=== PATIENT | male | born 1980 | race Caucasian/White ===

== ENCOUNTER 2021-08-01 14:35 | Inpatient (IN) | payer OTHER ==
[~2021-08-01] VITALS: Ht 177.8 cm; Wt 120.5 kg
[2021-08-01 15:23] LABS: BASOPHILS % (AUTO) 0.1 % (0.0-2.0); EOSINOPHILS % (AUTO) 0.3 % (1.0-6.0); HEMATOCRIT 40.6 % (41-53); HEMOGLOBIN 13.7 g/dL (13.5-17.5); LYMPHOCYTES # (AUTO) 1.1 K/uL (1.0-4.8); MEAN CORPUSCULAR HEMOGLOBIN 28.9 pg (26.0-34.0); MEAN CORPUSCULAR HGB CONC 33.7 G/dL (31.0-37.0); MEAN CORPUSCULAR VOLUME 86 fL (80-100); MONOCYTES % (AUTO) 8.3 % (2.0-9.0); NEUTROPHILS # (AUTO) 10.2 K/uL (1.8-7.7); NEUTROPHILS % (AUTO) 82.3 % (40.0-70.0); PLATELET COUNT (AUTO) 249 K/uL (150-450); RED BLOOD CELL COUNT(AUTO) 4.74 MIL/uL (4.50-5.90); RED CELL DISTRIBUTION WIDTH 14.4 % (11.5-14.5)
[2021-08-01 15:31] LABS: ANION GAP 13 mmol/L (8-16); CALCIUM, TOTAL 8.3 mg/dL (8.8-10.5); CARBON DIOXIDE 25 mmol/L (22-29); CHLORIDE 99 mmol/L (98-107); CREATININE 0.85 mg/dL (0.60-1.30); GLOMERULAR FILTR. RATE CALC > 60 mL/min (>60); GLUCOSE,RANDOM 112 mg/dL (70-110); POTASSIUM 3.7 mmol/L (3.5-5.1); SODIUM SERUM 137 mmol/L (136-145); UREA NITROGEN, BLOOD 17 mg/dL (7-18)
[2021-08-01 15:37] LABS: ALANINE AMINOTRANSFERASE 30 U/L (12-78); ALBUMIN 3.5 g/dL (3.4-5.0); ALKALINE PHOSPHATASE 71 U/L (46-116); ASPARTATE AMINOTRANSFERASE 19 U/L (15-37); TOTAL PROTEIN, SERUM 8.4 g/dL (6.4-8.2)
[2021-08-01 15:43] LABS: COVID AG,FIA SOURCE NASOPHARYNGEAL
[2021-08-01] MEDS ORDERED: ACETAMINOPHEN 325 MG TABLET PO ONE (16:15)
[2021-08-01] MEDS ORDERED: ALBUTEROL SULFATE HFA 90 MCG/PUFF 8 GM INHALER IH PRN (16:45)
[2021-08-01] MEDS ORDERED: GuaiFENesin/D-METHORPHAN [SUGAR-FREE] 200-20MG/10 ML SYRUP UDCUP PO PRN (16:45)
[2021-08-01] MEDS ORDERED: ACETAMINOPHEN 325 MG TABLET PO PRN (16:45)
[2021-08-01] MEDS ORDERED: LOPERAMIDE HCL 2 MG CAPSULE PO PRN (16:45)
[2021-08-01] MEDS ORDERED: PETROLATUM,WHITE 28 GM JELLY TP PRN (16:45)
[2021-08-01] MEDS ORDERED: NICOTINE 14 MG/24 HOUR PATCH TD PRN (16:45)
[2021-08-01] MEDS ORDERED: MAG HYDROX/AL HYDROX/SIMETH ES 30 ML SUSPENSION UDCUP PO PRN (16:45)
[2021-08-01] MEDS ORDERED: CloNIDine HCL 0.1 MG TABLET PO PRN (16:45)
[2021-08-01] MEDS ORDERED: MAGNESIUM HYDROXIDE SUSPENSION 30 ML UDCUP PO PRN (16:45)
[2021-08-01] MEDS ORDERED: IBUPROFEN 400 MG TABLET PO PRN (16:45)
[2021-08-01] MEDS ORDERED: DOCUSATE SODIUM 100 MG CAPSULE PO PRN (16:45)
[2021-08-01] MEDS ORDERED: ONDANSETRON HCL 4 MG TABLET PO PRN (16:45)
[2021-08-01 17:42] LABS: APPEARANCE,URINE CLOUDY (CLEAR); GLUCOSE, URINE (UA) NEGATIVE (NEGATIVE); KETONES,URINE 15 mg/dL (NEGATIVE); LEUKOCYTE ESTERASE ,URINE SMALL (NEGATIVE); NITRATE,URINE NEGATIVE (NEGATIVE); OCCULT BLOOD,URINE LARGE (NEGATIVE); PH,URINE 5.5 (5.0-8.0); PROTEIN,URINE SEE CONFIRM (NEGATIVE)
[2021-08-01 17:58] LABS: BILIRUBIN,URINE PRELIM. POSITIVE (NEGATIVE)
[2021-08-01 18:07] LABS: AMPHET/METH SCREEN,URINE NEGATIVE (NEGATIVE); BARBITURATE SCREEN, URINE NEGATIVE (NEGATIVE); BENZODIAZEPINES SCREEN,URINE NEGATIVE (NEGATIVE); CANNABINOID SCREEN,URINE NEGATIVE (NEGATIVE); COCAINE SCREEN,URINE NEGATIVE (NEGATIVE); METHADONE SCREEN, URINE NEGATIVE (NEGATIVE); OPIATE SCREEN,URINE NEGATIVE (NEGATIVE); PHENCYCLIDINE SCREEN,URINE NEGATIVE (NEGATIVE)
[2021-08-01 18:10] LABS: BACTERIA,URINE None Seen /HPF (None Seen); SQUAMOUS EPITHELIAL CELL,UR Few /LPF (None Seen); SULFOSALICYLIC ACID,URINE 1+ (Negative); WBC,URINE 0-2 /HPF (0-5)
[2021-08-01 18:32] VITALS: BP 101/59
[2021-08-01] MEDS ORDERED: *CLINICAL-LEVOFLOXACIN IVPB DOSING CLINICAL ONE (19:00)
[2021-08-01 20:00] VITALS: BP 140/59
[2021-08-01] MEDS ORDERED: SODIUM CHLORIDE 0.9% 250 ML IV ONE (21:02)
[2021-08-01] MEDS: LEVOFLOXACIN 750 MG/D5% WATER 150 ML IV SCH (21:13)
[2021-08-01] MEDS ORDERED: SODIUM CHLORIDE 3% 15 ML NEB SOLUTION NEB ONE (23:45)
[2021-08-02] MEDS ORDERED: ACETAMINOPHEN 325 MG TABLET PO PRN (00:45)
[2021-08-02 04:00] VITALS: BP 91/59
[2021-08-02 06:20] LABS: BASOPHILS % (AUTO) 0.2 % (0.0-2.0); EOSINOPHILS % (AUTO) 0.5 % (1.0-6.0); HEMATOCRIT 36.9 % (41-53); HEMOGLOBIN 12.7 g/dL (13.5-17.5); LYMPHOCYTES # (AUTO) 1.3 K/uL (1.0-4.8); LYMPHOCYTES % (AUTO) 14.2 % (22.0-44.0); MEAN CORPUSCULAR HEMOGLOBIN 29.3 pg (26.0-34.0); MEAN CORPUSCULAR HGB CONC 34.4 G/dL (31.0-37.0); MEAN CORPUSCULAR VOLUME 85 fL (80-100); MONOCYTES # (AUTO) 0.9 K/uL (0.1-1.0); MONOCYTES % (AUTO) 10.6 % (2.0-9.0); NEUTROPHILS # (AUTO) 6.6 K/uL (1.8-7.7); NEUTROPHILS % (AUTO) 74.5 % (40.0-70.0); PLATELET COUNT (AUTO) 228 K/uL (150-450); RED BLOOD CELL COUNT(AUTO) 4.33 MIL/uL (4.50-5.90); RED CELL DISTRIBUTION WIDTH 14.3 % (11.5-14.5)
[2021-08-02 08:24] VITALS: BP 121/70
[2021-08-02 12:40] VITALS: BP 127/74
[2021-08-02 19:45] VITALS: BP 126/63
[2021-08-02] MEDS: LEVOFLOXACIN 750 MG/D5% WATER 150 ML IV SCH (20:17)
[2021-08-02] MEDS: ZOLPIDEM TARTRATE 5 MG TABLET PO PRN (22:29)
[2021-08-03 03:40] VITALS: BP 110/58
[2021-08-03 08:05] VITALS: BP 112/52
[2021-08-03 19:00] VITALS: BP 116/58
[2021-08-03] MEDS: ZOLPIDEM TARTRATE 5 MG TABLET PO PRN (20:44)
[2021-08-03] MEDS: LEVOFLOXACIN 750 MG/D5% WATER 150 ML IV SCH (20:44)
[2021-08-04 04:50] VITALS: BP 107/68
[2021-08-04 08:00] VITALS: BP 122/87
[2021-08-04] MEDS ORDERED: LEVOFLOXACIN 500 MG TABLET PO SCH (11:00)
[2021-08-04] MEDS ORDERED: LEVO500T89 PO (11:45)
[2021-08-04] MEDS ORDERED: ACET-2247 PO (11:46)
[2021-08-04] MEDS ORDERED: ALBU8HFA IH (11:47)
[2021-08-04] MEDS ORDERED: DOCU-270 PO (11:48)
[2021-08-04] MEDS ORDERED: CLON0.1T2 PO (11:48)
[2021-08-04] MEDS ORDERED: GUAIFDM PO (11:49)
[2021-08-04] MEDS ORDERED: IBUP-1506 PO (11:50)
[2021-08-04] MEDS ORDERED: LOPE2 PO (11:50)
[2021-08-04] MEDS ORDERED: MAAL30 PO (11:51)
[2021-08-04] MEDS ORDERED: MOM30 PO (11:52)
[2021-08-04] MEDS ORDERED: NICO-703 TD (11:53)
== END 2021-08-04 15:00 | DRG 603 ==
LOC: EMS 14:40 → 6S 17:15
PROVIDERS: ADMIT Internal Medicine; ATTEND Internal Medicine
DX: L03.116 Cellulitis of left lower limb (principal); Z20.822 Contact with and (suspected) exposure to COVID-19; E66.9 Obesity, unspecified; Z87.891 Personal history of nicotine dependence; Z68.38 Body mass index [BMI] 38.0-38.9, adult
CPT/HCPCS: 71045; 80053; 81001; 81002; 85025; 87015; 87206; 93970; 94640; 99285; J1956; J7050; 36415-L1; 36415-TC; U0003